=== PATIENT | female | born 1965 | race Caucasian/White ===

== ENCOUNTER → 2017-10-06 | Outpatient (CLI) | payer BC, OTHER ==
--- NOTE | 2017-10-07 16:38 | Diagnostic Imaging Report ---
INDICATION: Screening mammogram. COMPARISON: 11/24/2013. EXAMINATION: Digital screening mammography was obtained of bilateral breasts with a Computer Aided Detection (CAD) system and three-dimensional tomosynthesis. FINDINGS: Scattered fibroglandular densities are present. There is no mass or suspicious calcification. IMPRESSION: Stable screening mammogram. No malignancy. ACR BI-RADS Category 1: Negative. Result letter will be mailed to the patient. Note: At least 10% of breast cancer is not imaged by mammography. Dictated by: Dictated on workstation # [id number]
== END ==
LOC: RAD 15:37
PROVIDERS: ATTEND Nurse Practitioner Family
DX: Z12.31 Encounter for screening mammogram for malignant neoplasm of breast (principal)
CPT/HCPCS: 77067

== ENCOUNTER 2018-01-28 13:00 | Outpatient (CLI) | payer BC ==
[~2018-01-28] VITALS: Ht 162.6 cm; Wt 117.5 kg
[2018-01-28] MEDS ORDERED: UBID50CA21 PO (13:17)
[2018-01-28] MEDS ORDERED: MELO15TA39 PO (13:17)
[2018-01-28] MEDS ORDERED: MELA5CAP PO (13:17)
[2018-01-28] MEDS ORDERED: FLUT16SP22 NS (13:17)
[2018-01-28] MEDS ORDERED: CINN500C2 PO (13:17)
[2018-01-28] MEDS ORDERED: CALC600T80 PO (13:17)
[2018-01-28] MEDS ORDERED: CETI10TA17 PO (13:17)
[2018-01-28] MEDS ORDERED: RANI150T90 PO (13:17)
[2018-01-28] MEDS ORDERED: ASCO-262 PO (13:17)
[2018-01-28] MEDS ORDERED: LOVA40TA2 PO (13:17)
[2018-01-28] MEDS ORDERED: CHRO400T8 PO (13:17)
[2018-01-28] MEDS ORDERED: HYDR25TA4 PO (13:17)
== END 2018-01-28 13:19 ==
LOC: PREOP 13:00
PROVIDERS: ATTEND Surgery
DX: Z01.818 Encounter for other preprocedural examination (principal); Z12.11 Encounter for screening for malignant neoplasm of colon; K21.9 Gastro-esophageal reflux disease without esophagitis

== ENCOUNTER 2018-02-01 13:22 | Day surgery (SDC) | payer BC, OTHER ==
[~2018-02-01] VITALS: Ht 162.6 cm; Wt 117.5 kg
[~2018-02-01 13:22] MED LIST: ASCO-262 PO; CALC600T80 PO; CETI10TA17 PO; CHRO400T8 PO; CINN500C2 PO; FLUT16SP22 NS; HYDR25TA4 PO; LOVA40TA2 PO; MELA5CAP PO; MELO15TA39 PO; RANI150T90 PO; UBID50CA21 PO
--- OUTSIDE RECORDS SUMMARY | 2018-02-01 13:26 | XMS REPORT ---
Author Author JUAN JOSE OSBORNE [facility] Address [address] [place] [address] Care Team Providers Care Delivery Motorcycle Driver Name Role Phone JUAN JOSE OSBORNE Unavailable PROBLEMS Type Condition ICD9-CM Code WDI06-YL Code Onset Dates Condition Status SNOMED Code Problem Essential hypertension I10 Active 91391667 Problem Gynecologic exam normal Z01.419 Active 659591802 Problem Breast cancer screening Z12.39 Active 933659834 Problem Hyperlipidemia, unspecified hyperlipidemia type E78.5 Active 70831300 Problem Arthritis of knee M19.90 Active 392948159 Problem Gastroesophageal reflux disease without esophagitis K21.9 Active 714889365 Problem Morbid (severe) obesity due to excess calories E66.01 Active 85627308316230 Problem Mixed hyperlipidemia E78.2 Active 582907562 Problem Screening for human papillomavirus (HPV) Z11.51 Active 585038670 Problem Screen for colon cancer Z12.11 Active 932516660 Problem Body mass index (BMI) of 40.0-44.9 in adult Z68.41 Active 762890714 Problem Breast cancer screening Z12.31 Active 932912393 ALLERGIES No Information ENCOUNTERS Encounter Location Date Diagnosis [facility] [address] [facility] [id number] [place] [id number] Oct, 2018 Essential hypertension I10 ; Mixed hyperlipidemia E78.2 ; Gastroesophageal reflux disease without esophagitis K21.9 ; Arthritis of knee M19.90 ; Screen for colon cancer Z12.11 ; Seasonal allergic rhinitis, unspecified trigger J30.2 ; Morbid (severe) obesity due to excess calories E66.01 ; Body mass index (BMI) of 40.0-44.9 in adult Z68.41 and BMI 40.0-44.9, adult Z68.41 [facility] [address] [facility] [address] [address] [address] [id number] [place] [id number] Sep, [facility] [id number][place] [id number] Aug, Acute vaginitis N76.0 and Other specified bacterial agents as the cause of diseases classified elsewhere B96.89 [facility] [id number], [place] [id number] Aug, Gynecologic exam normal Z01.419 ; Breast cancer screening Z12.31 ; Colon cancer screening Z12.11 and BMI 40.0-44.9, adult Z68.[address] [facility] [address] [id number], [place] [id number] Jul, [facility] [address] [id number][place] [id number] Jun, Hyperlipidemia, unspecified hyperlipidemia type E78.5 and Essential hypertension I10 [facility] [address] [id number], [place] [address] May, [facility] [address] [address] [id number], [place] [address] Feb, [facility] [address] [id number], [place] [id number] Feb, [facility] [address] [id number], [place] [address] Jan, [facility] [address] [id number], [place] [address] Jan, [facility] [address] [facility] [id number][place] [id number] Sep, [facility] [address] [id number], [place] [address] Sep, Hyperglycemia R73.[address] [facility] [address] [id number], [place] [id number] Aug, Hyperlipidemia, unspecified hyperlipidemia type E78.5 and Arthritis of knee M19.[address] [facility] [address] [id number], [place] [id number] Mar, [facility] [address] [id number], [place] [id number] Mar, [facility] [address] [id number], [place] [id number] Mar, Hyperglycemia R73.[address] [facility] [address] [id number], [place] [address] Mar, Breast cancer screening Z12.39 [facility] [address] [id number], [place] [id number] Mar, Breast cancer screening Z12.39 and Hyperlipidemia, unspecified hyperlipidemia type E78.5 [facility] [address] [id number], [place] [address] Mar, [facility] [address] [address] [id number], [place] [id number] Feb, Gynecologic exam normal Z01.419 ; Screening for human papillomavirus (HPV) Z11.51 ; Screen for colon cancer Z12.11 and Breast cancer screening Z12.39 [facility] [address] [id number], [place] [id number] Jan, [facility] [address] [id number], [place] [address] Jan, [facility] [address] [id number], [place] [id number] Jul, Essential hypertension I10 ; Hyperlipidemia, unspecified hyperlipidemia type E78.5 ; Gastroesophageal reflux disease without esophagitis K21.9 and Arthritis of knee M19.90 [facility] [address] [id number], [place] [address] Nov, [facility] [address]00565100[place], [place] [address] Nov, [facility] [address]00565100[place], [place] [address] Sep, [facility] [address]00565100[place], [place] [address] Sep, [facility] [place] [facility] [address] [id number] [place] [address] Aug, [facility] [place] [facility] [address] [id number] [place] [address] 0617 Aug, [facility] [place] [facility] [address] [id number] [place] [address]- 5305 Jul, [facility] [place] [facility] [address] [id number] [place] [address]- 1069 Jul, [facility] [place] [facility] [address] [id number] [place] [address]- 0847 May, [facility] [place] [facility] [address] [id number] [place] [address]- 7848 May, [facility] [place] [facility] [address] [id number] [place] [address]- 6389 Feb, [facility] [place] [facility] [address] [id number] [place] [address]- 5795 Feb, [facility] [place] [facility] [address] [id number] [place] [address]- 3323 Nov, [facility] [place] [facility] [address] [id number] [place] [address]- 7961 Nov, [facility] [place] [facility] [address] [id number] [place] [address] 7101 Oct, [facility] [place] [facility] [address] [id number] [place] [address]- 3382 Oct, [facility] [place] [facility] [address] [id number] [place] [address]- 2837 Oct, [facility] [place] [facility] [address] [id number] [place] [address]- 9062 Oct, [facility] [place] [facility] [address] [id number] [place] [address] Oct, [facility] [place] [facility] [address] [id number] [place] [address]- 9512 Oct, [facility] [address] [id number] [place] [address]- 4921 Sep, [facility] [place] [facility] [address] [id number] [place] [address]- 9383 Sep, [facility] [place] [facility] [address] [id number] [place] [address]- 5850 Aug, [facility] [place] [facility] [address] [id number] [place] [address]- 8170 Aug, [facility] [place] [facility] [address] [id number] [place] [address]- 9936 Aug, [facility] [place] [facility] [address] [id number] [place] [address]- 0499 Aug, [facility] [place] [facility] [address] [id number] [place] [address]- 1834 Jul, [facility] [place] [facility] [address] [id number] [place] [address]- 7996 Jul, [facility] [place] [facility] [address] [id number] [place] [address]- 0628 May, [facility] [place] [facility] [address] [id number] [place] [address]- 2014 May, [facility] [place] [facility] [address] [id number] [place] [address]- 6009 Feb, [facility] [place] [facility] [address] [id number] [place] [address]- 4687 Feb, [facility] [place] [facility] [address] [id number] [place] [address]- 9205 Feb, [facility] [place] [facility] [address] [id number] [place] [address]- 5769 Jan, [facility] [place] [facility] [address] [id number] [place] [address]- 3830 December, [facility] [place] [facility] [address] [id number] [place] [address]- 3786 December, [facility] [place] [facility] [address] [id number] [place] [address]- 9925 Nov, [facility] [place] [facility] [address] [id number] [place] [address]- 1650 Sep, [facility] [place] [facility] [address] [id number] [place] [address]- 9770 Jul, [facility] [place] [facility] [address] [id number] [place] [address]- 2316 Jul, [facility] [place] [facility] [address] [id number] [place] [address]- 0447 Jul, [facility] [place] [facility] [address] [id number] [place] [address]- 7287 Jul, [facility] [place] [facility] [address] [id number] [place] [address]- 6526 28 Jun, 2012 [facility] [place] [facility] [address] [id number] [place] [address]- 2143 28 Jun, 2012 [facility] [place] [facility] [address] [id number] [place] [address]- 8630 16 Jun, 2012 [facility] [place] [facility] [address] [id number] [place] [address]- 4151 16 Jun, 2012 [facility] [place] [facility] [address] [id number] [place] [address]- 6939 15 Jun, 2012 [facility] [place] [facility] [address] [id number] [place] [address]- 4839 14 Jun, 2012 [facility] [place] [facility] [address] [id number] [place] [address]- 9476 12 Jun, 2012 [facility] [place] [facility] [address] [id number] [place] [address]- 6438 11 Jun, 2012 [facility] [place] [facility] [address] [id number] [place] [address]- 2546 Jun, [facility] [place] [facility] [address] [id number] [place] [address]- 9786 Jun, [facility] [place] [facility] [address] [id number] [place] [address]- 8856 May, [facility] [place] [facility] [address] [id number] [place] [address]- 2580 May, [facility] [place] [facility] [address] [id number] [place] [address]- 1756 May, [facility] [place] [facility] [address] [id number] [place] [address]- 3193 May, [facility] [place] [facility] [address] [id number] [place] [address]- 7059 Apr, [facility] [place] [facility] [address] [id number] [place] [address]- 7117 Feb, [facility] [place] [facility] [address] [id number] [place] [address]- 7139 December, [facility] [place] [facility] [address] [id number] [place] [address]- 9464 December, [facility] [place] [facility] [address] [id number], [place] [address]- 9502 Aug, [facility] [place] [facility] [address] [id number], [place] [address] 3848 Jul, [facility] [place] [facility] [address] [id number], [place] [address] 2543 Jun, [facility] [place] [facility] [address] [id number] [place] [address]- 8256 16 May, 2009 [facility] [place] [facility] [address] [id number], [place] [address] 6112 14 May, 2009 [facility] [place] [facility] [address] [id number] [place] [address]- 4856 14 May, 2009 [facility] [place] [facility] [address] [facility] [id number] [place] [address] 3865 Jul, IMMUNIZATIONS No Known Immunizations SOCIAL HISTORY Never Assessed REASON FOR VISIT results PLAN OF CARE VITAL SIGNS MEDICATIONS No Known Medications RESULTS No Results PROCEDURES No Known procedures INSTRUCTIONS MEDICATIONS ADMINISTERED No Known Medications MEDICAL (GENERAL) HISTORY Type Description Date Medical History hyperlipidemia Medical History hypertension Medical History chronic pain-knee Medical History acid reflux Medical History obesity Medical History refusal of the cologaurd test 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
--- OUTSIDE RECORDS SUMMARY | 2018-02-01 13:26 | XMS REPORT ---
Author Author JUAN JOSE OSBORNE Organization [employer] Address Unknown Phone Unavailable Care Team Providers Care Repair Mechanic Name Role Phone JUAN JOSE OSBORNE CP Unavailable Allergies No Known Allergies Problems Problem Type Condition Code Onset Dates Condition Status Problem Arthritis of knee M19.90 Active Problem Screening for human papillomavirus (HPV) Z11.51 Active Problem Screen for colon cancer Z12.11 Active Problem Gynecologic exam normal Z01.419 Active Problem Hyperlipidemia, unspecified hyperlipidemia type E78.5 Active Problem Gastroesophageal reflux disease without esophagitis K21.9 Active Problem Breast cancer screening Z12.39 Active Problem Essential hypertension I10 Active Medications No Known Medications Results No Known Results Summary Purpose [employer] Submission
--- OUTSIDE RECORDS SUMMARY | 2018-02-01 13:26 | XMS REPORT ---
Author Author JUAN JOSE OSBORNE [facility] Address [address] [place] [address] Care Team Providers Care Customer Engineer Name Role Phone JUAN JOSE OSBORNE Unavailable PROBLEMS Type Condition ICD9-CM Code [id number] Code Onset Dates Condition Status SNOMED Code Problem Essential hypertension I10 Active 87268897 Problem Gynecologic exam normal Z01.419 Active 095358910 Problem Breast cancer screening Z12.39 Active 652947573 Problem Hyperlipidemia, unspecified hyperlipidemia type E78.5 Active 77254647 Problem Arthritis of knee M19.90 Active 880702347 Problem Gastroesophageal reflux disease without esophagitis K21.9 Active 369374414 Problem Morbid (severe) obesity due to excess calories E66.01 Active 01684815612450 Problem Mixed hyperlipidemia E78.2 Active 704793071 Problem Screening for human papillomavirus (HPV) Z11.51 Active 343826476 Problem Screen for colon cancer Z12.11 Active 912487059 Problem Body mass index (BMI) of 40.0-44.9 in adult Z68.41 Active 070556112 Problem Breast cancer screening Z12.31 Active 077783193 ALLERGIES No Information ENCOUNTERS Encounter Location Date Diagnosis [facility] [address] [facility] [id number] [place] [id number] Oct, 2018 Essential hypertension I10 ; Mixed hyperlipidemia E78.2 ; Gastroesophageal reflux disease without esophagitis K21.9 ; Arthritis of knee M19.90 ; Screen for colon cancer Z12.11 ; Seasonal allergic rhinitis, unspecified trigger J30.2 ; Morbid (severe) obesity due to excess calories E66.01 ; Body mass index (BMI) of 40.0-44.9 in adult Z68.41 and BMI 40.0-44.9, adult Z68.41 [facility] [address] [id number] [place] [id number] Sep, [facility] [address] [id number][place] [id number] Aug, Acute vaginitis N76.0 and Other specified bacterial agents as the cause of diseases classified elsewhere B96.89 [facility] [address] [id number], [place] [id number] Aug, Gynecologic exam normal Z01.419 ; Breast cancer screening Z12.31 ; Colon cancer screening Z12.11 and BMI 40.0-44.9, adult Z68.[address] [facility] [address] [id number], [place] [id number] Jul, [facility] [address] [address] [id number], [place] [id number] Jun, Hyperlipidemia, unspecified hyperlipidemia type E78.5 and Essential hypertension I10 [facility] [address] [id number], [place] [id number] May, [facility] [address] [id number], [place] [id number] Feb, [facility] [address] [address] [id number], [place] [address] Feb, [facility] [address] [id number], [place] [id number] Jan, [facility] [address] [address] [id number][place] [id number] Jan, [facility] [address] [facility] [id number][place] [id number] Sep, [facility] [address] [id number], [place] [id number] Sep, Hyperglycemia R73.[address] [facility] [address] [id number][place] [id number] Aug, Hyperlipidemia, unspecified hyperlipidemia type E78.5 and Arthritis of knee M19.[address] [facility] [address] [id number], [place] [id number] Mar, [facility] [address] [address] [id number], [place] [id number] Mar, [facility] [address] [address] [id number], [place] [address] Mar, Hyperglycemia R73.[address] [facility] [address] [id number], [place] [id number] Mar, Breast cancer screening Z12.39 [facility] [address] [address] [id number][place] [id number] Mar, Breast cancer screening Z12.39 and Hyperlipidemia, unspecified hyperlipidemia type E78.5 [facility] [address] [id number], [place] [id number] Mar, [facility] [address] [address] [id number], [place] [id number] Feb, Gynecologic exam normal Z01.419 ; Screening for human papillomavirus (HPV) Z11.51 ; Screen for colon cancer Z12.11 and Breast cancer screening Z12.39 [facility] [address] [address] [id number], [place] [id number] Jan, [facility] [address] [id number], [place] [id number] Jan, [facility] [address] [id number], [place] [id number] Jul, Essential hypertension I10 ; Hyperlipidemia, unspecified hyperlipidemia type E78.5 ; Gastroesophageal reflux disease without esophagitis K21.9 and Arthritis of knee M19.90 [facility] [address] [id number], [place] [address]247 Nov, [facility] [address]00565100[place], [place] [address]01 Nov, [facility] [address], [place] [address]- 9859 Sep, [facility] [address]65100[place], [place] [address]- 9642 Sep, [facility] [place] [facility] [address] [id number] [place] [address]- 9185 Aug, [facility] [place] [facility] [address] [id number] [place] [address]- 2525 Aug, [facility] [place] [facility] [address] [id number] [place] [address]- 9019 Jul, [facility] [place] [facility] [address] [id number] [place] [address]- 6673 Jul, [facility] [place] [facility] [address] [id number] [place] [address]- 6386 May, [facility] [place] [facility] [address] [id number] [place] [address]- 0955 May, [facility] [place] [facility] [address] [id number] [place] [address]- 8517 Feb, [facility] [place] [facility] [address] [id number] [place] [address]- 1996 Feb, [facility] [place] [facility] [address] [id number] [place] [address]- 2531 Nov, [facility] [place] [facility] [address] [id number] [place] [address]- 1043 Nov, [facility] [place] [facility] [address] [id number] [place] [address]- 8114 Oct, [facility] [place] [facility] [address] [id number] [place] [address]- 3468 Oct, [facility] [place] [facility] [address] [id number] [place] [address]- 0726 Oct, [facility] [place] [facility] [address] [id number] [place] [address]- 0075 Oct, [facility] [place] [facility] [address] [id number] [place] 8031 Oct, [facility] [place] [facility] [address] [id number] [place] [address]- 8232 Oct, [facility] [address] [id number] [place] [address]- 0950 Sep, [facility] [place] [facility] [address] [id number] [place] [address]- 8231 Sep, [facility] [place] [facility] [address] [id number] [place] [address]- 0994 Aug, [facility] [place] [facility] [address] [id number] [place] [address]- 3739 Aug, [facility] [place] [facility] [address] [id number] [place] [address]- 7997 Aug, [facility] [place] [facility] [address] [id number] [place] [address]- 7096 Aug, [facility] [place] [facility] [address] [id number] [place] [address]- 1424 Jul, [facility] [place] [facility] [address] [id number] [place] [address]- 1726 Jul, [facility] [place] [facility] [address] [id number] [place] [address]- 6816 May, [facility] [place] [facility] [address] [id number] [place] [address]- 7109 May, [facility] [place] [facility] [address] [id number] [place] [address]- 6233 Feb, [facility] [place] [facility] [address] [id number] [place] [address]- 3167 Feb, [facility] [place] [facility] [address] [id number] [place] [address]- 3394 Feb, [facility] [place] [facility] [address] [id number] [place] [address]- 2066 Jan, [facility] [place] [facility] [address] [id number] [place] [address]- 9117 December, [facility] [place] [facility] [address] [id number] [place] [address]- 0977 December, [facility] [place] [facility] [address] [id number] [place] [address]- 4490 Nov, [facility] [place] [facility] [address] [id number] [place] [address]- 6647 Sep, [facility] [place] [facility] [address] [id number] [place] [address]- 6786 Jul, [facility] [place] [facility] [address] [id number] [place] [address]- 2642 Jul, [facility] [place] [facility] [address] [id number] [place] [address]- 4304 Jul, [facility] [place] [facility] [address] [id number] [place] [address]- 3431 Jul, [facility] [place] [facility] [address] [id number] [place] [address]- 1803 28 Jun, 2012 [facility] [place] [facility] [address] [id number] [place] [address]- 8414 28 Jun, 2012 [facility] [place] [facility] [address] [id number] [place] [address]- 5698 16 Jun, 2012 [facility] [place] [facility] [address] [id number] [place] [address]- 14[address] 16 Jun, 2012 [facility] [place] [facility] [address] [id number] [place] [address] 15 Jun, 2012 [facility] [place] [facility] [address] [id number] [place] [address] 14 Jun, 2012 [facility] [place] [facility] [address] [id number] [place] [address] 12 Jun, 2012 [facility] [place] [facility] [address] [id number] [place] [address] 11 Jun, 2012 [facility] [place] [facility] [address] [id number] [place] [address] Jun, [facility] [place] [facility] [address] [id number] [place] [address] Jun, [facility] [place] [facility] [address] [id number] [place] [address] May, [facility] [place] [facility] [address] [id number] [place] [address] May, [facility] [place] [facility] [address] [id number] [place] [address] May, [facility] [place] [facility] [address] [id number] [place] [address] May, [facility] [place] [facility] [address] [id number] [place] [address] Apr, [facility] [place] [facility] [address] [id number] [place] [address] Feb, [facility] [place] [facility] [address] [id number] [place] [address] December, [facility] [place] [facility] [address] [id number] [place] [address] December, [facility] [place] [facility] [address] [id number], [place] [address] Aug, [facility] [place] [facility] [address] [id number], [place] [address] Jul, [facility] [place] [facility] [address] [id number], [place] [address] Jun, [facility] [place] [facility] [address] [id number] [place] [address] 16 May, 2009 [facility] [place] [facility] [address] [id number], [place] [address] 14 May, 2009 [facility] [place] [facility] [address] [id number] [place] [address] 14 May, 2009 [facility] [place] [facility] [address] [facility] [id number] [place] [address] Jul, IMMUNIZATIONS No Known Immunizations SOCIAL HISTORY Never Assessed REASON FOR VISIT Requests return call PLAN OF CARE VITAL SIGNS MEDICATIONS Medication Instructions Dosage Frequency Start Date End Date Duration Status Ranitidine HCl 150 MG Orally Once a day 1 tablet at bedtime 24h 90 days Active Flonase 50 MCG/ACT Nasally Once a day 1 spray in each nostril 24h 90 days Active RESULTS No Results PROCEDURES No Known procedures [...]
--- OUTSIDE RECORDS SUMMARY | 2018-02-01 13:26 | XMS REPORT ---
Author Author JUAN JOSE OSBORNE [facility] Address [address] [place] [address] Care Team Providers Care Cake Former Name Role Phone JUAN JOSE OSBORNE Unavailable PROBLEMS Type Condition ICD9-CM Code KJS66-CF Code Onset Dates Condition Status SNOMED Code Problem Essential hypertension I10 Active 58815956 Problem Gynecologic exam normal Z01.419 Active 225513408 Problem Breast cancer screening Z12.39 Active 941304632 Problem Hyperlipidemia, unspecified hyperlipidemia type E78.5 Active 16537988 Problem Arthritis of knee M19.90 Active 349308403 Problem Gastroesophageal reflux disease without esophagitis K21.9 Active 702710514 Problem Morbid (severe) obesity due to excess calories E66.01 Active 22669595963383 Problem Mixed hyperlipidemia E78.2 Active 721647913 Problem Screening for human papillomavirus (HPV) Z11.51 Active 296812303 Problem Screen for colon cancer Z12.11 Active 763386704 Problem Body mass index (BMI) of 40.0-44.9 in adult Z68.41 Active 000376359 Problem Breast cancer screening Z12.31 Active 535743175 ALLERGIES No Information ENCOUNTERS Encounter Location Date Diagnosis [facility] [address] [id number] [place] [id number] Oct, 2018 Essential hypertension I10 ; Mixed hyperlipidemia E78.2 ; Gastroesophageal reflux disease without esophagitis K21.9 ; Arthritis of knee M19.90 ; Screen for colon cancer Z12.11 ; Seasonal allergic rhinitis, unspecified trigger J30.2 ; Morbid (severe) obesity due to excess calories E66.01 ; Body mass index (BMI) of 40.0-44.9 in adult Z68.41 and BMI 40.0-44.9, adult Z68.41 [facility] [address] [id number] [place] [id number] Sep, [facility] [address] [id number] [place] [id number] Aug, Acute vaginitis N76.0 and Other specified bacterial agents as the cause of diseases classified elsewhere B96.89 [facility] [address] [id number] [place] [id number] Aug, Gynecologic exam normal Z01.419 ; Breast cancer screening Z12.31 ; Colon cancer screening Z12.11 and BMI 40.0-44.9, adult Z68.[address] [facility] [address] [id number] [place] [id number] Jul, [facility] [address] [id number] [place] [id number] Jun, Hyperlipidemia, unspecified hyperlipidemia type E78.5 and Essential hypertension I[address] [facility] [address] [address] [id number] [place] [id number] May, [facility] [address] [id number] [place] [id number] Feb, [facility] [address] [id number] [place] [id number] Feb, [facility] [address] [id number] [place] [id number] Jan, [facility] [address] [id number] [place] [id number] Jan, [facility] [address] [id number] [id number] Sep, [facility] [address] [id number] [place] [id number] Sep, Hyperglycemia R73.[address] [facility] [address] [address] [id number] [place] [id number] Aug, Hyperlipidemia, unspecified hyperlipidemia type E78.5 and Arthritis of knee M19.[address] [facility] [address] [id number] [place] [id number] Mar, [facility] [address] [id number] [place] [id number] Mar, [facility] [address] [id number] [place] [id number] Mar, Hyperglycemia R73.[address] [facility] [address] [id number] [place] [address] Mar, Breast cancer screening Z12.39 [facility] [address] [address] [id number] [place] [id number] Mar, Breast cancer screening Z12.39 and Hyperlipidemia, unspecified hyperlipidemia type E78.5 [facility] [address] [address] [id number] [place] [id number] Mar, [facility] [address] [id number] [place] [id number] Feb, Gynecologic exam normal Z01.419 ; Screening for human papillomavirus (HPV) Z11.51 ; Screen for colon cancer Z12.11 and Breast cancer screening Z12.39 [facility] [address] [address] [id number] [place] [id number] Jan, [facility] [address] [id number] [place] [id number] Jan, [facility] [address] [id number] [place] [id number] Jul, Essential hypertension I10 ; Hyperlipidemia, unspecified hyperlipidemia type E78.5 ; Gastroesophageal reflux disease without esophagitis K21.9 and Arthritis of knee M19.90 [facility] [address] [id number] [address] Nov, [facility] [address]00565[address], [place] [address] Nov, [facility] [id number], [place] [address] Sep, [facility] [address], [place] [address] Sep, [facility] [place] [facility] [address] [id number] [place] [address] Aug, [facility] [place] [facility] [address] [id number] [place] [address] Aug, [facility] [place] [facility] [address] [id number] [place] [address] Jul, [facility] [place] [facility] [address] [id number] [place] [address] Jul, [facility] [place] [facility] [address] [id number] [place] [address] May, [facility] [place] [facility] [address] [id number] [place] [address] May, [facility] [place] [facility] [address] [id number] [place] [address] Feb, [facility] [place] [facility] [address] [id number] [place] [address] Feb, [facility] [place] [facility] [address] [id number] [place] [address] Nov, [facility] [place] [facility] [address] [id number] [place] [address] Nov, [facility] [place] [facility] [address] [id number] [place] [address] Oct, [facility] [place] [facility] [address] [id number] [place] [address] Oct, [facility] [place] [facility] [address] [id number] [place] [address] Oct, [facility] [place] [facility] [address] [id number] [place] [address] Oct, [facility] [place] [facility] [address] [id number] [place] [address] Oct, [facility] [place] [facility] [address] [id number] [place] [address] Oct, [facility] [address] [id number] [place] [address] Sep, [facility] [place] [facility] [address] [id number] [place] [address] Sep, [facility] [place] [facility] [address] [id number] [place] [address] Aug, [facility] [place] [facility] [address] [id number] [place] [address] Aug, [facility] [place] [facility] [address] [id number] [place] [address] Aug, [facility] [place] [facility] [address] [id number] [place] [address] Aug, [facility] [place] [facility] [address] [id number] [place] [address] Jul, [facility] [place] [facility] [address] [id number] [place] [address] Jul, [facility] [place] [facility] [address] [id number] [place] [address] May, [facility] [place] [facility] [address] [id number] [place] [address] May, [facility] [place] [facility] [address] [id number] [place] [address] Feb, [facility] [place] [facility] [address] [id number] [place] [address] Feb, [facility] [place] [facility] [address] [id number] [place] [address] Feb, [facility] [place] [facility] [address] [id number] [place] [address] Jan, [facility] [place] [facility] [address] [id number] [place] [address] December, [facility] [place] [facility] [address] [id number] [place] [address] December, [facility] [place] [facility] [address] [id number] [place] [address] Nov, [facility] [place] [facility] [address] [id number] [place] [address] Sep, [facility] [place] [facility] [address] [id number] [place] [address] Jul, [facility] [place] [facility] [address] [id number] [place] [address] Jul, [facility] [place] [facility] [address] [id number] [place] [address] Jul, [facility] [place] [facility] [address] [id number] [place] [address] Jul, [facility] [place] [facility] [address] [id number] [place] [address] 28 Jun, 2012 [facility] [place] [facility] [address] [id number] [place] [address] 28 Jun, 2012 [facility] [place] [facility] [address] [id number] [place] [address]- [address] 16 Jun, 2012 [facility] [place] [facility] [address] [id number] [place] [address] 16 Jun, 2012 [facility] [place] [facility] [address] [id number] [place] [address] 15 Jun, 2012 [facility] [place] [facility] [address] [id number] [place] [address] 14 Jun, 2012 [facility] [place] [facility] [address] [id number] [place] [address] 12 Jun, 2012 [facility] [place] [facility] [address] [id number] [place] [address] 11 Jun, 2012 [facility] [place] [facility] [address] [id number] [place] [address]- [address] Jun, [facility] [place] [facility] [address] [id number] [place] [address] Jun, [facility] [place] [facility] [address] [id number] [place] [address]- [address] May, [facility] [place] [facility] [address] [id number] [place] [address] May, [facility] [place] [facility] [address] [id number] [place] [address]- [address] May, [facility] [place] [facility] [address] [id number] [place] [address] May, [facility] [place] [facility] [address] [id number] [place] [address]- [address] Apr, [facility] [place] [facility] [address] [id number] [place] [address] Feb, [facility] [place] [facility] [address] [id number] [place] [address] December, [facility] [place] [facility] [address] [id number] [place] [address] December, [facility] [place] [facility] [address] [id number], [place] [address] Aug, [facility] [place] [facility] [address] [id number], [place] [address] Jul, [facility] [place] [facility] [address] [id number], [place] [address] 254 Jun, [facility] [place] [facility] [address] [id number] [place] [address] 16 May, 2009 [facility] [place] [facility] [address] [id number], [place] [address] 14 May, 2009 [facility] [place] [facility] [address] [id number] [place] [address]- [address] 14 May, 2009 [facility] [place] [facility] [address] [facility] [id number] [place] [address] Jul, IMMUNIZATIONS No Known Immunizations SOCIAL HISTORY Never Assessed REASON FOR VISIT labs- [email or web address] PLAN OF CARE VITAL SIGNS MEDICATIONS No Known Medications RESULTS No Results PROCEDURES Procedure Date Ordered Result Body Site ROUTINE VENIPUNCTURE 2017-07-29 N/A COMPREHEN METABOLIC PANEL Jul 29, 2017 ASSAY THYROID STIM HORMONE Jul 29, 2017 LIPID PANEL Jul 29, 2017 COMPLETE CBC W/AUTO DIFF WBC Jul 29, 2017 ASSAY OF FREE THYROXINE Jul 29, 2017 INSTRUCTIONS MEDICATIONS ADMINISTERED No Known Medications MEDICAL [...]
--- OUTSIDE RECORDS SUMMARY | 2018-02-01 13:26 | XMS REPORT ---
Author Author JUAN JOSE OSBORNE Organization [employer] Address Unknown Phone Unavailable Care Team Providers Care Hobbing Press Operator Name Role Phone JUAN JOSE OSBORNE CP Unavailable Allergies No Known Allergies Problems Problem Type Condition Code Onset Dates Condition Status Assessment Hyperlipidemia, unspecified hyperlipidemia type E78.5 Active Problem Arthritis of knee M19.90 Active Assessment Breast cancer screening Z12.39 Active Problem Screening for human papillomavirus (HPV) Z11.51 Active Problem Screen for colon cancer Z12.11 Active Problem Gynecologic exam normal Z01.419 Active Problem Hyperlipidemia, unspecified hyperlipidemia type E78.5 Active Problem Gastroesophageal reflux disease without esophagitis K21.9 Active Problem Breast cancer screening Z12.39 Active Problem Essential hypertension I10 Active Medications No Known Medications Procedures Procedure Coding System Code Date ASSAY THYROID STIM HORMONE CPT-4 79476 Apr 03, 2016 ASSAY OF FREE THYROXINE CPT-4 39789 Apr 03, 2016 IMMUNOASSAY, TUMOR, CA 125 CPT-4 55523 Apr 03, 2016 LIPID PANEL CPT-4 78094 Apr 03, 2016 COMPLETE CBC W/AUTO DIFF WBC CPT-4 04120 Apr 03, 2016 VENIPUNCT, ROUTINE* CPT-4 85239 Apr 03, 2016 COMPREHEN METABOLIC PANEL CPT-4 19860 Apr 03, 2016 Results No Known Results Summary Purpose [employer] Submission
--- OUTSIDE RECORDS SUMMARY | 2018-02-01 13:26 | XMS REPORT ---
Author Author JUAN JOSE OSBORNE [facility] Address [address] [place] [address] Care Team Providers Care Blood Tester Fowl Name Role Phone JUAN JOSE OSBORNE Unavailable PROBLEMS Type Condition ICD9-CM Code WAD62-FM Code Onset Dates Condition Status SNOMED Code Problem Arthritis of knee M19.90 Active 165890567 Problem Hyperlipidemia, unspecified hyperlipidemia type E78.5 Active 07939143 Problem Gynecologic exam normal Z01.419 Active 727422299 Problem Breast cancer screening Z12.39 Active 264327627 Problem Essential hypertension I10 Active 51966850 Problem Gastroesophageal reflux disease without esophagitis K21.9 Active 298346621 Problem Screening for human papillomavirus (HPV) Z11.51 Active 276690818 Problem Screen for colon cancer Z12.11 Active 580266263 ALLERGIES Unknown Allergies SOCIAL HISTORY No smoking Hx information available PLAN OF CARE VITAL SIGNS MEDICATIONS Medication Instructions Dosage Frequency Start Date End Date Duration Status Meloxicam 15 MG Orally Once a day 1 tablet 24h 6 Aug, 2016 0 days Active Lovastatin 40 mg Orally Once a day with evening meal 1 tablet 0 days Active RESULTS No Results PROCEDURES No Known procedures IMMUNIZATIONS No Known Immunizations
--- OUTSIDE RECORDS SUMMARY | 2018-02-01 13:26 | XMS REPORT ---
Author Author [facility] Address [address] [place] [address] Care Team Providers Care Funeral Service Licensee Name Role Phone JUAN JOSE OSBORNE Unavailable PROBLEMS Type Condition ICD9-CM Code OEX27-RO Code Onset Dates Condition Status SNOMED Code Problem Arthritis of knee M19.90 Active 069152061 Problem Hyperlipidemia, unspecified hyperlipidemia type E78.5 Active 95326865 Problem Gynecologic exam normal Z01.419 Active 847593986 Problem Breast cancer screening Z12.39 Active 271847590 Problem Essential hypertension I10 Active 68808285 Problem Gastroesophageal reflux disease without esophagitis K21.9 Active 693957686 Problem Screening for human papillomavirus (HPV) Z11.51 Active 318659431 Problem Screen for colon cancer Z12.11 Active 738083595 ALLERGIES No Information SOCIAL HISTORY Never Assessed PLAN OF CARE VITAL SIGNS MEDICATIONS Medication Instructions Dosage Frequency Start Date End Date Duration Status Hydrochlorothiazide 25 MG Orally Once a day 1 tablet 24h Active RESULTS No Results PROCEDURES No Known procedures IMMUNIZATIONS No Known Immunizations MEDICAL (GENERAL) HISTORY Type Description Date Medical History hyperlipidemia Medical History hypertension Medical History chronic pain-knee Medical History acid reflux Medical History obesity 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
--- OUTSIDE RECORDS SUMMARY | 2018-02-01 13:27 | XMS REPORT ---
Author Author [facility] Address [address] [place] [address] Care Team Providers Care Geometry Professor Name Role Phone KAROLYN TONY Unavailable PROBLEMS Type Condition ICD9-CM Code GCQ22-JK Code Onset Dates Condition Status SNOMED Code Problem Arthritis of knee M19.90 Active 408861326 Problem Hyperlipidemia, unspecified hyperlipidemia type E78.5 Active 41652638 Problem Gynecologic exam normal Z01.419 Active 391351150 Problem Breast cancer screening Z12.39 Active 907114826 Problem Essential hypertension I10 Active 78170222 Problem Gastroesophageal reflux disease without esophagitis K21.9 Active 455410772 Problem Screening for human papillomavirus (HPV) Z11.51 Active 778240271 Problem Screen for colon cancer Z12.11 Active 160709947 ALLERGIES Unknown Allergies SOCIAL HISTORY No smoking Hx information available PLAN OF CARE VITAL SIGNS MEDICATIONS Unknown Medications RESULTS Name Result Date Reference Range A1C 2016-10-01 Hemoglobin A1c 6.0 4.8-5.6 PROCEDURES Procedure Date Ordered Related Diagnosis Body Site ROUTINE VENIPUNCTURE 2016-10-01 N/A GLYCATED HEMOGLOBIN TEST Oct 01, 2016 VENIPUNCT, ROUTINE* Oct 01, 2016 IMMUNIZATIONS No Known Immunizations
--- OUTSIDE RECORDS SUMMARY | 2018-02-01 13:27 | XMS REPORT ---
Author Author JUAN JOSE OSBORNE [facility] [employer] Address Unknown Phone Unavailable Care Team Providers Care Technology Director Name Role Phone JUAN JOSE OSBORNE CP Unavailable Allergies, Adverse Reactions, Alerts Substance Reaction Event Type Metformin hypoglycemia Drug Allergy Problems Problem Type Condition Code Onset Dates Condition Status Assessment Arthritis of knee M19.90 Active Problem Hyperlipidemia, unspecified hyperlipidemia type E78.5 Active Problem Gastroesophageal reflux disease without esophagitis K21.9 Active Problem Essential hypertension I10 Active Assessment Hyperlipidemia, unspecified hyperlipidemia type E78.5 Active Assessment Gastroesophageal reflux disease without esophagitis K21.9 Active Problem Arthritis of knee M19.90 Active Assessment Essential hypertension I10 Active Medications Medication Code System Code Instructions Start Date End Date Status Dosage Lovastatin [facility] [address]-43 20 MG Orally Once a day take 1 tablet by Oral route 1 time per day at bed time Nexium [facility] [address]-63 40 MG Orally Once a day 1 Capsule by Oral route 1 time per day Calcium 600 [facility] [address]-66 600 mg (1,500 mg) Sep 27, 2014 1 time per day Chromium Picolinate [facility] 64[address]97 500 mcg Sep 27, 2014 1 time per day Vitamin C [facility] 18904-34745 1,000 mg Sep 27, 2014 1 time per day Meloxicam [facility] [address]-80 15 MG Orally May 09, 2016 take 1 tablet by Oral route 1 time per day PRN take with food, pain Flonase NDC 0 50 mcg/actuation Sep 27, 2014 1 sprays by Nasal route 2 times per day in each nostril Needs to be seen for further refils cetirizine [facility] [address]-62 10 mg Sep 27, 2014 take 1 tablet (10 mg) by oral route once daily Hydrochlorothiazide [facility] [address]-51 25 MG Orally Once a day 1 tablet by Oral route 1 time per day in AM Procedures Procedure Coding System Code Date Office Visit, Est Pt., Level 4 CPT-4 68892 Aug 13, 2015 Vital Signs Date/Time: Aug 13, 2015 Temperature 99.2 F Weight 252.9 lbs Height 65 in BMI 42.08 Index Blood Pressure Diastolic 70 mmHg Blood Pressure Systolic 118 mmHg Cardiac Monitoring Heart Rate 72 bpm Results No Known Results Summary Purpose [employer] Submission
--- OUTSIDE RECORDS SUMMARY | 2018-02-01 13:27 | XMS REPORT ---
Author Author JUAN JOSE OSBORNE [facility] Address [address] [place] [address] Care Team Providers Care Receiving Checker Name Role Phone JUAN JOSE OSBORNE Unavailable PROBLEMS Type Condition ICD9-CM Code COR23-[place] Code Onset Dates Condition Status SNOMED Code Problem Essential hypertension I10 Active 46168656 Problem Gynecologic exam normal Z01.419 Active 539619666 Problem Breast cancer screening Z12.39 Active 179086017 Problem Hyperlipidemia, unspecified hyperlipidemia type E78.5 Active 15089346 Problem Arthritis of knee M19.90 Active 834583977 Problem Gastroesophageal reflux disease without esophagitis K21.9 Active 240406655 Problem Morbid (severe) obesity due to excess calories E66.01 Active 22041247025064 Problem Mixed hyperlipidemia E78.2 Active 393874688 Problem Screening for human papillomavirus (HPV) Z11.51 Active 350829498 Problem Screen for colon cancer Z12.11 Active 329239016 Problem Body mass index (BMI) of 40.0-44.9 in adult Z68.41 Active 634643855 Problem Breast cancer screening Z12.31 Active 682940143 ALLERGIES No Information ENCOUNTERS Encounter Location Date Diagnosis [facility] [address] [facility] [id number] [place] [id number] Oct, 2018 Essential hypertension I10 ; Mixed hyperlipidemia E78.2 ; Gastroesophageal reflux disease without esophagitis K21.9 ; Arthritis of knee M19.90 ; Screen for colon cancer Z12.11 ; Seasonal allergic rhinitis, unspecified trigger J30.2 ; Morbid (severe) obesity due to excess calories E66.01 ; Body mass index (BMI) of 40.0-44.9 in adult Z68.41 and BMI 40.0-44.9, adult Z68.41 [facility] [address] [id number] [place] [id number] Sep, [facility] [address] [address] [id number] [place] [id number] Aug, Acute vaginitis N76.0 and Other specified bacterial agents as the cause of diseases classified elsewhere B96.89 [facility] [address] [id number] [place] [id number] Aug, Gynecologic exam normal Z01.419 ; Breast cancer screening Z12.31 ; Colon cancer screening Z12.11 and BMI 40.0-44.9, adult Z68.[address] [facility] [address] [address] [id number] [place] [id number] Jul, [facility] [address] [id number] [place] [id number] Jun, Hyperlipidemia, unspecified hyperlipidemia type E78.5 and Essential hypertension I[address] [facility] [address] [address] [id number] [place] [id number] May, [facility] [address] [id number] [place] [id number] Feb, [facility] [address] [id number] [place] [id number] Feb, [facility] [address] [id number] [place] [id number] Jan, [facility] [address] [id number] [place] [id number] Jan, [facility] [address] [facility] [id number] [id number] Sep, [facility] [address] [id number] [place] [id number] Sep, Hyperglycemia R73.[address] [facility] [address] [address] [id number] [place] [id number] Aug, Hyperlipidemia, unspecified hyperlipidemia type E78.5 and Arthritis of knee M19.[address] [facility] [address] [id number] [place] [id number] Mar, [facility] [address] [id number] [place] [id number] Mar, [facility] [address] [id number] [place] [id number] Mar, Hyperglycemia R73.[address] [facility] [address] [address] [id number] [place] [id number] Mar, Breast cancer screening Z12.39 [facility] [address] [id number] [place] [id number] Mar, Breast cancer screening Z12.39 and Hyperlipidemia, unspecified hyperlipidemia type E78.5 [facility] [address] [id number] [place] [id number] Mar, [facility] [address] [id number] [place] [id number] Feb, Gynecologic exam normal Z01.419 ; Screening for human papillomavirus (HPV) Z11.51 ; Screen for colon cancer Z12.11 and Breast cancer screening Z12.39 [facility] [address] [id number] [place] [id number] Jan, [facility] [address] [id number] [place] [id number] Jan, [facility] [address] [id number] [place] [id number] Jul, Essential hypertension I10 ; Hyperlipidemia, unspecified hyperlipidemia type E78.5 ; Gastroesophageal reflux disease without esophagitis K21.9 and Arthritis of knee M19.90 [facility] [address] [id number] [address] Nov, [facility] [address]00565100[place], [place] [address] Nov, [facility] [address]00565100[place], [place] [address] Sep, [facility] [address]65100[place], [place] [address] Sep, [facility] [place] [facility] [address] [id number] [place] [address] Aug, [facility] [place] [facility] [address] [id number] [place] [address] Aug, [facility] [place] [facility] [address] [id number] [place] [address] Jul, [facility] [place] [facility] [address] [id number] [place] [address] Jul, [facility] [place] [facility] [address] [id number] [place] [address] May, [facility] [place] [facility] [address] [id number] [place] [address] May, [facility] [place] [facility] [address] [id number] [place] [address] Feb, [facility] [place] [facility] [address] [id number] [place] [address] Feb, [facility] [place] [facility] [address] [id number] [place] [address] Nov, [facility] [place] [facility] [address] [id number] [place] [address] Nov, [facility] [place] [facility] [address] [id number] [place] [address] Oct, [facility] [place] [facility] [address] [id number] [place] [address] Oct, [facility] [place] [facility] [address] [id number] [place] [address] Oct, [facility] [place] [facility] [address] [id number] [place] [address] Oct, [facility] [place] [facility] [address] [id number] [place] Oct, [facility] [place] [facility] [address] [id number] [place] [address] Oct, [facility] [address] [id number] [place] [address] Sep, [facility] [place] [facility] [address] [id number] [place] [address] Sep, [facility] [place] [facility] [address] [id number] [place] [address] Aug, [facility] [place] [facility] [address] [id number] [place] [address] Aug, [facility] [place] [facility] [address] [id number] [place] [address] Aug, [facility] [place] [facility] [address] [id number] [place] [address] Aug, [facility] [place] [facility] [address] [id number] [place] [address] Jul, [facility] [place] [facility] [address] [id number] [place] [address] Jul, [facility] [place] [facility] [address] [id number] [place] [address] May, [facility] [place] [facility] [address] [id number] [place] [address] May, [facility] [place] [facility] [address] [id number] [place] [address] Feb, [facility] [place] [facility] [address] [id number] [place] [address] Feb, [facility] [place] [facility] [address] [id number] [place] [address] Feb, [facility] [place] [facility] [address] [id number] [place] [address] Jan, [facility] [place] [facility] [address] [id number] [place] [address] December, [facility] [place] [facility] [address] [id number] [place] [address] December, [facility] [place] [facility] [address] [id number] [place] [address] Nov, [facility] [place] [facility] [address] [id number] [place] [address] Sep, [facility] [place] [facility] [address] [id number] [place] [address] Jul, [facility] [place] [facility] [address] [id number] [place] [address] Jul, [facility] [place] [facility] [address] [id number] [place] [address] Jul, [facility] [place] [facility] [address] [id number] [place] [address] Jul, [facility] [place] [facility] [address] [id number] [place] [address] 28 Jun, 2012 [facility] [place] [facility] [address] [id number] [place] [address] 28 Jun, 2012 [facility] [place] [facility] [address] [id number] [place] [address] 16 Jun, 2012 [facility] [place] [facility] [address] [id number] [place] [address] 16 Jun, 2012 [facility] [place] [facility] [address] [id number] [place] [address]- [address] 15 Jun, 2012 [facility] [place] [facility] [address] [id number] [place] [address] 14 Jun, 2012 [facility] [place] [facility] [address] [id number] [place] [address] 12 Jun, 2012 [facility] [place] [facility] [address] [id number] [place] [address] 11 Jun, 2012 [facility] [place] [facility] [address] [id number] [place] [address] Jun, [facility] [place] [facility] [address] [id number] [place] [address] Jun, [facility] [place] [facility] [address] [id number] [place] [address] May, [facility] [place] [facility] [address] [id number] [place] [address] May, [facility] [place] [facility] [address] [id number] [place] [address] May, [facility] [place] [facility] [address] [id number] [place] [address] May, [facility] [place] [facility] [address] [id number] [place] [address] Apr, [facility] [place] [facility] [address] [id number] [place] [address] Feb, [facility] [place] [facility] [address] [id number] [place] [address] December, [facility] [place] [facility] [address] [id number] [place] [address] December, [facility] [place] [facility] [address] [id number], [place] [address] Aug, [facility] [place] [facility] [address] [id number], [place] [address] Jul, [facility] [place] [facility] [address] [id number], [place] [address] Jun, [facility] [place] [facility] [address] [id number] [place] [address] 16 May, 2009 [facility] [place] [facility] [address] [id number], [place] [address] 14 May, 2009 [facility] [place] [facility] [address] [id number] [place] [address] 14 May, 2009 [facility] [place] [facility] [address] [facility] [id number] [place] [address] Jul, IMMUNIZATIONS No Known Immunizations SOCIAL HISTORY Never Assessed REASON FOR VISIT PLAN OF CARE VITAL SIGNS MEDICATIONS No [...]
--- OUTSIDE RECORDS SUMMARY | 2018-02-01 13:27 | XMS REPORT ---
Author Author JUAN JOSE OSBORNE Organization [employer] Address Unknown Phone Unavailable Care Team Providers Care Infantry Indirect Fire Crewmember Name Role Phone JUAN JOSE OSBRONE CP Unavailable Allergies No Known Allergies Problems Problem Type Condition Code Onset Dates Condition Status Problem Arthritis of knee M19.90 Active Assessment [...]
--- OUTSIDE RECORDS SUMMARY | 2018-02-01 13:27 | XMS REPORT ---
Author Author JUAN JOSE OSBORNE Organization [employer] Address Unknown Phone Unavailable Care Team Providers Care Web Applications Administrator Name Role Phone JUAN JOSE OSBORNE CP [...]
--- OUTSIDE RECORDS SUMMARY | 2018-02-01 13:27 | XMS REPORT ---
Author Author JUAN JOSE OSBORNE [facility] [employer] Address Unknown Phone Unavailable Care Team Providers Care Cannon Crewmember Name Role Phone JUAN JOSE OSBORNE CP Unavailable Allergies, Adverse Reactions, Alerts Substance Reaction Event Type Metformin hypoglycemia Drug Allergy Problems Problem Type Condition Code Onset Dates Condition Status Assessment Screening for human papillomavirus (HPV) Z11.51 Active Problem Arthritis of knee M19.90 Active Assessment Gynecologic exam normal Z01.419 Active Assessment Breast cancer screening Z12.39 Active Assessment Screen for colon cancer Z12.11 Active Problem Screening for human papillomavirus (HPV) Z11.51 Active Problem Screen for colon cancer Z12.11 Active Problem Gynecologic exam normal Z01.419 Active Problem Hyperlipidemia, unspecified hyperlipidemia type E78.5 Active Problem Gastroesophageal reflux disease without esophagitis K21.9 Active Problem Breast cancer screening Z12.39 Active Problem Essential hypertension I10 Active Medications Medication Code System Code Instructions Start Date End Date Status Dosage Vitamin C [facility] [address]85 1,000 mg Sep 27, 2014 1 time per day Hydrochlorothiazide [facility] [address]-23 25 MG Orally Once a day 1 tablet by Oral route 1 time per day in AM Cetirizine HCl [facility] 29749549358 10 MG take 1 tablet (10 mg) by oral route once daily Calcium 600 [facility] [address]-76 600 mg (1,500 mg) 2 times a day Sep 27, 2014 1 time per day Chromium Picolinate [facility] 43269-[address]80 500 mcg Sep 27, 2014 1 time per day Meloxicam [facility] [address]-20 15 MG Orally May 09, 2016 take 1 tablet by Oral route 1 time per day PRN take with food, pain Fluticasone Propionate [facility] 35206520181 50 MCG/ACT USE ONE SPRAY IN EACH NOSTRIL TWO TIMES DAILY. NEEDS TO BE SEEN FOR FURTHER REFILLS. Lovastatin [facility] [address]-17 40 MG Orally Once a day take 1 tablet by Oral route 1 time per day at bed time Flonase [facility] 98353432267 50 MCG/ACT Nasally Once a day 1 spray in each nostril Zantac 150 Maximum Strength [facility] [address]-19 150 MG Orally Once a day March 25, 2016 1 tablet at bedtime Procedures Procedure Coding System Code Date SPECIMEN HANDLING CPT-4 43307 March 25, 2016 Preventive Care Est Pt. Age 40-64 CPT-4 18197 March 25, 2016 TEST FOR BLOOD, FECES CPT-4 97362 March 25, 2016 Vital Signs Date/Time: March 25, 2016 Cardiac Monitoring Heart Rate 68 bpm Weight 252 lbs Height 65 in BMI 41.93 Index Blood Pressure Diastolic 84 mmHg Blood Pressure Systolic 132 mmHg Results No Known Results Summary Purpose [employer] Submission
[2018-02-01] MEDS ORDERED: MIDAZOLAM 2 MG/2 ML (VERSED) VIAL IVP PRN (13:30)
[2018-02-01] MEDS ORDERED: fentaNYL INJECTION 100 MCG/2 ML AMP IVP PRN (13:30)
[2018-02-01] MEDS ORDERED: LACTATED RINGERS 1,000 ML IV STA (13:30)
[2018-02-01] MEDS ORDERED: HURRICAINE EXT TUBE (BENZOCAINE) XX PRN (13:30)
[2018-02-01] MEDS ORDERED: LACTATED RINGERS 1,000 ML IV ONE (13:35)
[2018-02-01 13:45] VITALS: BP 143/94
[2018-02-01] MEDS ORDERED: PROPOFOL INJECTION 50 ML IV ONE (14:52)
[2018-02-01] MEDS ORDERED: MIDAZOLAM 2 MG/2 ML (VERSED) VIAL ONE ×2 (15:09→15:37)
[2018-02-01] MEDS ORDERED: HURRICAINE EXT TUBE (BENZOCAINE) ONE (15:21)
--- NOTE | 2018-02-01 15:29 | Progress Note-Pre Operative ---
Pre-Operative Progress Note H&P Reviewed The H&P was reviewed, patient examined and no changes noted. Date Seen by Provider: Feb 01, 2018 Time Seen by Provider: 15:28 Date H&P Reviewed: Feb 01, 2018 Time H&P Reviewed: 15:29 Pre-Operative Diagnosis: GERD, family history colon cancer JOY NGUYEN DO Feb 01, 2018 15:29
[2018-02-01] MEDS ORDERED: proPOfol 200 MG/20 ML (DIPRIVAN) VIAL IV ONE (15:59)
--- NOTE | 2018-02-01 16:14 | Progress Note-Post Operative ---
Post-Operative Progess Note Surgeon (s)/[employer] Safety Program Coordinator (s) Surgeon JOY NGUYEN DO [employer] Safety Program Coordinator: na Pre-Operative Diagnosis GERD, family history colon cancer Post-Operative Diagnosis reflux esophagitis, normal colon Procedure & Operative Findings Date of Procedure 02/01/18 Procedure Performed/Findings egd c biopsies, colonoscopy Anesthesia Type per mda Estimated Blood Loss Estimated blood loss (mL): none Specimens/Packing Specimens Removed antrum, ge junction JOY NGUYEN DO Feb 01, 2018 16:14
--- NOTE | 2018-02-01 16:15 | Discharge Inst-Simple/Standard ---
Discharge Inst-Standard Patient Instructions/Follow Up Plan of Care/Instructions/FU: 2 weeks Milana Activity as Tolerated: Yes Discharge Diet: Regular Diet JOY NGUYEN DO Feb 01, 2018 16:15
[2018-02-01 16:20] VITALS: BP 143/77
[2018-02-01 16:45] VITALS: BP 136/70
[2018-02-01 16:51] VITALS: BP 136/70
--- NOTE | 2018-02-01 17:13 | Anesthesia-General Post-Op ---
MAC Patient Condition Mental Status/LOC: Same as Preop Cardiovascular: Satisfactory Nausea/Vomiting: Absent Respiratory: Satisfactory Pain: Controlled Complications: Absent Post Op Complications Complications None Follow Up Care/Instructions Patient Instructions None needed. Anesthesiology Discharge Order Discharge Order Patient is doing well, no complaints, stable vital signs, no apparent adverse anesthesia problems. No complications reported per nursing. ISIS ALTAMIRANO CRNA Feb 01, 2018 17:12
--- NOTE | 2018-02-01 23:55 | OPERATIVE REPORT ---
DATE OF SERVICE: 02/01/2018 PREOPERATIVE DIAGNOSES: Gastroesophageal reflux disease and family history of colon cancer. POSTOPERATIVE DIAGNOSES: Reflux esophagitis, normal colon. PROCEDURES: EGD with biopsies and colonoscopy. ANESTHESIA: Per [facility]. SURGEON: Joy Cortés DO. ESTIMATED BLOOD LOSS: None. COMPLICATIONS: None. INDICATIONS: This patient is a 52-year-old female who has had worsening gastroesophageal reflux disease. She has been on ranitidine. She also has family history of colon cancer and need screening. She understands risks and benefits and wished to proceed with procedures. Consent was signed in the chart. PROCEDURE: The patient was taken to the endoscopy suite, placed in left lateral recumbent position. Timeout was performed. Scope was inserted in the mouth, down the esophagus, stomach and into the duodenum without difficulty. There were no polyps, mass or ulcerations within the duodenum. Scope was then slowly retracted back into the stomach, which was further insufflated. Biopsy of the antrum was obtained. There are no polyps, mass or ulcerations. The scope was retroflexed noting no other pathology. Scope was returned to its normal position, slowly withdrawn in distal esophagus. At the distal esophagus, some slight erythematous changes and one kind of beefy red area was present. Biopsy was obtained. The tissue seemed to be more friable in this area as well. Scope was slowly retracted back until completely removed noting no other pathology. Digital rectal exam was performed. There were no palpable polyps, mass or ulcerations. The scope was inserted in the rectum, advanced all the way to cecum with minimal difficulty. Prep was adequate. Scope was then slowly retracted back. There were no polyps, mass or ulcerations in the cecum, ascending, transverse, descending and sigmoid colon. Once in the rectum, scope was also retroflexed noting no other pathology except for some slight hemorrhoidal disease. Scope was returned to its normal position, slowly withdrawn until completely removed, noting no other pathology. RECOMMENDATIONS: The patient will follow up in the office in approximately 2 weeks to discuss pathology results. We will consider switching medication to Protonix 40 mg daily. The patient with family history of colon cancer, will need repeat colonoscopy in 5 years. If she has any problems prior to that, she should be reevaluated at that time. Job ID: [id number] DocumentID: [id number] Dictated Date: 02/01/2018 16:24:21 Operational Risk Manager Date: 02/01/2018 23:55:02 Dictated By: JOY CORTÉS DO
== END 2018-02-01 16:54 | disposition home or self-care (01) ==
LOC: ENDO 13:22
PROVIDERS: ATTEND Surgery
DX: Z12.11 Encounter for screening for malignant neoplasm of colon (principal); K21.0 Gastro-esophageal reflux disease with esophagitis; I10 Essential (primary) hypertension; Z80.0 Family history of malignant neoplasm of digestive organs; E66.01 Morbid (severe) obesity due to excess calories; Z79.899 Other long term (current) drug therapy; Z68.41 Body mass index [BMI] 40.0-44.9, adult
CPT/HCPCS: 88305

== ENCOUNTER → 2019-02-27 | Outpatient (CLI) | payer BC, OTHER ==
--- NOTE | 2019-02-27 13:59 | Diagnostic Imaging Report ---
INDICATION: Screening. TECHNIQUE: The current study was also evaluated with a Computer Aided Detection (CAD) system. 3D Tomographic imaging was also performed. COMPARISON: 10/06/2017, 11/24/2013, and 08/08/2012. FINDINGS: There are scattered fibroglandular densities bilaterally. There are a few benign type calcifications. There is a cluster of pleomorphic calcifications in the upper outer left breast. There is no dominant mass or spiculated lesion. The skin, nipples, and axillae are unremarkable. IMPRESSION: Cluster of pleomorphic microcalcifications in the upper outer left breast. The should be further characterized with magnification compression views. ACR BI-RADS Category 0: Incomplete. (Needs additional imaging evaluation). Result letter will be mailed to the patient. Note: At least 10% of breast cancer is not imaged by mammography. Dictated by: Dictated on workstation # [id number]
== END ==
LOC: RAD 10:12
PROVIDERS: ATTEND Registered Nurse
DX: Z12.31 Encounter for screening mammogram for malignant neoplasm of breast (principal); R92.0 Mammographic microcalcification found on diagnostic imaging of breast
CPT/HCPCS: 77067

== ENCOUNTER → 2019-03-16 | Outpatient (CLI) | payer BC ==
--- NOTE | 2019-03-16 19:10 | Diagnostic Imaging Report ---
INDICATION: Left breast calcifications. Patient presents for additional views. COMPARISON: Recent screening study from 02/27/2019 as well as 10/06/2017. EXAMINATION: Unilateral left 2D and 3D diagnostic mammography was performed. This included magnification CC and ML views as well as conventional 90 degree lateral views. FINDINGS: The cluster of calcifications in the upper outer left breast appear to be fairly coarse and likely benign. Additional areas of benign calcifications are noted more medially within the left breast. However, there is an indeterminate loosely clustered area of calcifications in the upper outer left breast at more posterior depth. The calcifications show some pleomorphism. No soft tissue mass is seen. IMPRESSION: 1. Coarse, likely benign cluster of microcalcifications in upper-outer left breast at mid depth. Surveillance of these calcifications with followup mammography in six month could be performed to show continued stability. 2. Loosely clustered, pleomorphic microcalcifications in the upper outer left breast, posteriorly. These are indeterminate. Tissue sampling is recommended. These would be amenable to stereotactic biopsy. Results and recommendations were discussed with the patient at time of the exam. ACR BI-RADS Category 4: Suspicious abnormality. Result letter will be mailed to the patient. Note: At least 10% of breast cancer is not imaged by mammography. Dictated by: Dictated on workstation # [id number]
== END ==
LOC: RAD 13:25
PROVIDERS: ATTEND Registered Nurse
DX: R92.0 Mammographic microcalcification found on diagnostic imaging of breast (principal)

== ENCOUNTER → 2019-03-31 | Outpatient (CLI) | payer BC ==
[~2019-03-31] VITALS: Ht 162.6 cm; Wt 117.5 kg
[~2019-03-31] MED LIST changes: +LIDOCAINE 1% INJ 20 ML 20 ML VIAL INJ ONE; +LIDOCAINE 1% INJ 20 ML 20 ML VIAL ONE
--- NOTE | 2019-03-31 14:05 | Diagnostic Imaging Report ---
INDICATION: Left breast calcifications. PROCEDURE: The patient presents for a serotactic biopsy. DESCRIPTION OF PROCEDURE: The patient was brought to the mammographic suite, placed in a chair in a sitting upright position. The left breast was positioned lateral medial. Stereotactic imaging of the left breast was performed. The suspicious microcalcifications in the upper outer left breast posterior depth were stereotactically targeted. The skin of the lateral left breast was then prepped and draped in the usual sterile fashion. A small amount of 1% lidocaine utilized for local anesthesia. An 8 gauge needle was advanced from a lateral medial approach per stereotactic coordinates. 4 core biopsies were obtained with a vacuum-assisted device. Specimen radiograph demonstrated numerous microcalcifications within cores labeled #1 and #2. Marker clip was deployed. A followup mammogram was performed and reviewed on a separate workstation. Stereotactic clip in the upper outer left breast is noted. IMPRESSION: Successful stereotactic biopsy of calcifications of the upper outer left breast posterior depth. Pathology results are currently pending. Dictated by: Dictated on workstation # [id number]
== END ==
LOC: RAD 09:38
PROVIDERS: ATTEND Registered Nurse
DX: R92.1 Mammographic calcification found on diagnostic imaging of breast (principal); R92.8 Other abnormal and inconclusive findings on diagnostic imaging of breast
CPT/HCPCS: 19081; 88305

== ENCOUNTER → 2019-11-23 | Outpatient (CLI) | payer BC, OTHER ==
[~2019-11-23] MED LIST changes: -LIDOCAINE 1% INJ 20 ML 20 ML VIAL INJ ONE; -LIDOCAINE 1% INJ 20 ML 20 ML VIAL ONE
--- NOTE | 2019-11-23 14:23 | Diagnostic Imaging Report ---
INDICATION: Left breast microcalcifications. Patient status post stereotactic biopsy with benign result. Correlation is made with prior mammogram 03/16/2019 and 10/06/2017. Unilateral left 2-D and 3-D diagnostic mammography was performed. Scattered fibroglandular densities in left breast are noted. There are postbiopsy changes in the upper outer left breast. A marker clip is in place. Previously noted suspicious microcalcifications have largely been removed. There are occasional benign calcifications present. Left axilla is unremarkable. IMPRESSION: BI-RADS Category 2 Postbiopsy changes left breast. No mammographic features suspicious for malignancy are identified. Dictated by: Dictated on workstation # [id number]
== END ==
LOC: RAD 12:56
PROVIDERS: ATTEND Registered Nurse
DX: R92.1 Mammographic calcification found on diagnostic imaging of breast (principal); Z98.890 Other specified postprocedural states

== ENCOUNTER → 2020-05-29 | Outpatient (CLI) | payer OTHER ==
--- NOTE | 2020-05-29 11:20 | Diagnostic Imaging Report ---
EXAMINATION: Digital mammogram bilateral screening with CAD. INDICATION: Screening. COMPARISON: This study was compared to the prior exams of 11/23/2019, 03/31/2019, 02/27/2019, and 10/06/2017. PERSONAL HISTORY: At this time, there are no current complaints. FINDINGS: The previous exam of 03/16/2019 noted loosely clustered pleomorphic microcalcifications in the upper outer aspect of the left breast at posterior depth. These microcalcifications were subsequently biopsied using a stereotactic device on 03/31/2019. The results of the biopsy showed fibroadenomatous changes with microcalcifications but failed to show any evidence for malignancy. On this exam, the calcifications in question are only barely visible. Most of them appear to have been removed. The stereotactic clip seen previously is again evident and no different. The prior study also revealed a group of coarse calcifications in the upper outer aspect of the left breast at mid depth. Those calcifications are again visualized and no different. The overall appearance of the left breast has not changed significantly otherwise. There are scattered fibroglandular densities in both breasts which could obscure a lesion. Overall, there has been no adverse change since the prior exam. There is no primary or secondary sign of malignancy noted. IMPRESSION: 1. The post biopsy changes involving the left breast appear stable. 2. There is no evidence for malignancy in either breast. 3. The patient should have her annual bilateral screening mammogram on schedule in April 2021. ACR BI-RADS Category 1: Negative. Result letter will be mailed to the patient. Note: At least 10% of breast cancer is not imaged by mammography. Dictated by: Dictated on workstation # [id number]
== END ==
LOC: RAD 09:45
PROVIDERS: ATTEND Nurse Practitioner Family
DX: Z12.31 Encounter for screening mammogram for malignant neoplasm of breast (principal)
CPT/HCPCS: 77063; 77067

== ENCOUNTER → 2021-04-23 | Outpatient (CLI) | payer BC ==
--- NOTE | 2021-04-23 09:33 | Diagnostic Imaging Report ---
INDICATION: Left breast pain. COMPARISON: 05/29/2020 and 02/27/2019. TECHNIQUE: 2D and 3D bilateral diagnostic mammography was performed with CAD. FINDINGS: Scattered fibroglandular densities are identified bilaterally. A biopsy clip in the upper left breast at mid depth is noted. There are benign calcifications present. No mass or malignant-appearing microcalcifications are seen. The axillae are unremarkable. IMPRESSION: No mammographic features suspicious for malignancy are identified. Even so, sonographic interrogation of the area of pain in the outer left breast is recommended and will be performed today. ACR BI-RADS Category 0: Incomplete. (Needs additional imaging evaluation). Result letter will be mailed to the patient. Note: At least 10% of breast cancer is not imaged by mammography. Dictated by: Dictated on workstation # [id number]
--- NOTE | 2021-04-23 09:50 | Diagnostic Imaging Report ---
Indication: Pain in the lateral left breast. Correlation is made with diagnostic mammogram earlier same day. Sonographic interrogation of the area of pain left breast was performed. There is a lymph node in left axilla measuring 1.9 x 0.9 x 1.5 cm. No concerning mass is identified. No cyst or fluid collection is identified. IMPRESSION: BI-RADS Category 2 No suspicious sonographic abnormality is identified at the area of pain in the lateral left breast. ACR BI-RADS Category 2: Benign findings. Dictated by: Dictated on workstation # [id number]
== END ==
LOC: RAD 08:45
PROVIDERS: ATTEND Nurse Practitioner Family
DX: N64.4 Mastodynia (principal)
CPT/HCPCS: 76642; 77066; G0279; 77062

== ENCOUNTER → 2021-04-29 | Outpatient (CLI) | payer BC ==
--- NOTE | 2021-04-29 15:15 | Diagnostic Imaging Report ---
INDICATION: Postmenopausal screening for osteoporosis COMPARISON: None FINDINGS: AP Spine L1-L4: [BMD (g/cm2): 1.365] [T-Score: 1.4] [Z-Score: 1.1] [BMD Previous: NA] [BMD % Change: NA] LT Hip Neck: [BMD (g/cm2): 1.226] [T-Score: 1.4] [Z-Score: 1.7] LT Hip Total: [BMD (g/cm2):1.323] [T-Score:2.5] [Z-Score: 2.4] [BMD Previous: NA] [BMD % Change: NA] RT Hip Neck: [BMD (g/cm2):1.172] [T-Score:1.0] [Z-Score:1.3] RT Hip Total: [BMD (g/cm2):1.238] [T-score:1.8] [Z-Score:1.7] [BMD Previous:NA] [BMD % Change:NA] *Indicates significant change from prior examination based on 95% confidence level. World Health Organization criteria for BMD interpretation classify patients as Normal (T-score at or above -1.0), Osteopenic (T-score between -1.0 and -2.5) or Osteoporotic (T-score at or below -2.5). LIMITATIONS AND MODIFICATION: None. FRACTURE RISK (FRAX SCORE): The ten year probability of (%): Major Osteoporotic Fracture: [NA] Hip Fracture: [NA] IMPRESSION: 1. Normal bone mineral density. 2. Baseline examination. 3. See below National Osteoporosis Foundation guidelines on when to potentially initiate pharmacologic therapy. Based on the National Osteoporosis Foundation Guidelines, pharmacologic treatment should be initiated in any of the following, unless clinical conditions suggest otherwise: * Any patient with prior fragility fracture of the hip or vertebrae. A spine fracture indicates 5X risk for subsequent spine fracture and 2X risk for subsequent hip fracture. * Osteoporosis (T-score <-2.5). * Postmenopausal women and men age 50 and older with low bone mass/osteopenia (T-score between -1.0 and -2.5) by DXA and 10-year major osteoporotic fracture greater than 20% or a 10-year probability of hip fracture greater than 3%. These fracture risks are supplied above in the FRAX score, if applicable. * Clinician judgement and/or patient preferences may indicate treatment for people with 10-year fracture probabilities above or below these levels. Dictated by: Dictated on workstation # [id number]
== END ==
LOC: RAD 11:59
PROVIDERS: ATTEND Nurse Practitioner Family
DX: Z13.820 Encounter for screening for osteoporosis (principal); Z78.0 Asymptomatic menopausal state
CPT/HCPCS: 77080

== ENCOUNTER → 2022-05-26 | Outpatient (CLI) | payer BC, OTHER ==
--- NOTE | 2022-05-26 14:50 | Diagnostic Imaging Report ---
INDICATION: Routine screening. Comparison is made with prior mammogram 04/23/2021 and 05/29/2020. 2-D and 3-D bilateral screening mammography was performed with CAD. CAD is utilized. The current study was also evaluated with a Computer Aided Detection (CAD) system. Scattered fibroglandular densities are identified bilaterally. Marker clip left breast is again noted. There are scattered benign calcifications. No mass or malignant-appearing microcalcifications are seen. Axillae are unremarkable. IMPRESSION: BI-RADS Category 2 No mammographic features suspicious for malignancy are identified. ACR BI-RADS Category 2: Benign findings. Result letter will be mailed to the patient. Note: At least 10% of breast cancer is not imaged by mammography. Dictated by: Dictated on workstation # [id number]
== END ==
LOC: RAD 08:30
PROVIDERS: ATTEND Nurse Practitioner Family
DX: Z12.31 Encounter for screening mammogram for malignant neoplasm of breast (principal)
CPT/HCPCS: 77063; 77067

== ENCOUNTER → 2023-06-24 | Outpatient (CLI) | payer OTHER ==
--- NOTE | 2023-06-24 12:02 | Diagnostic Imaging Report ---
Indication: Routine screening. Comparison is made with prior mammograms 05/26/2022 and 04/23/2021. 2-D and 3-D bilateral screening mammography was performed with CAD. Scattered fibroglandular densities are identified bilaterally. The parenchymal pattern is stable. Biopsy clip left breast is noted. Left breast calcifications appears stable. No mass or malignant-appearing microcalcifications are seen. Axillae are unremarkable. IMPRESSION: BI-RADS Category 2 No mammographic features suspicious for malignancy are identified. ACR BI-RADS Category 2: Benign findings. Result letter will be mailed to the patient. Note: At least 10% of breast cancer is not imaged by mammography. Dictated by: Dictated on workstation # [id number]
== END ==
LOC: RAD 09:10
PROVIDERS: ATTEND Nurse Practitioner Family
DX: Z12.31 Encounter for screening mammogram for malignant neoplasm of breast (principal)
CPT/HCPCS: 77063; 77067